=== PATIENT | male | born 1985 | race Caucasian/White ===

== ENCOUNTER → 2018-10-07 | Outpatient (CLI) | payer MEDICAID ==
[~2018-10-07] MED LIST: ALB18R INH; AMLO-113 PO; CAR6.25 PO; FURO40TA35 PO; LISI20TA29 PO; NAPR-1043 PO; PANT40TA65 PO
== END ==
LOC: US 09-27 04:50
PROVIDERS: ATTEND Physician Assistant Medical
DX: I50.9 Heart failure, unspecified (principal); I51.7 Cardiomegaly
CPT/HCPCS: 93306

== ENCOUNTER → 2018-11-20 | Outpatient (CLI) | payer MEDICAID ==
[2018-10-31 11:12] VITALS: BMI 68.6
[~2018-11-20] MED LIST changes: +ALBU2.5V36 NEB; +AZIT-18 PO; +CEF300 PO; +MODA200T6 PO; +OMEP-137 PO; +PRED20TA6 PO
== END ==
LOC: LAB 14:53
PROVIDERS: ATTEND Nurse Practitioner Family
DX: D50.9 Iron deficiency anemia, unspecified (principal); Z68.44 Body mass index [BMI] 60.0-69.9, adult; K43.9 Ventral hernia without obstruction or gangrene; D64.9 Anemia, unspecified
CPT/HCPCS: 36415; 82465; 82728; 83540; 83550; 83718; 84443; 84478

== ENCOUNTER → 2018-11-20 | Outpatient (CLI) | payer MEDICAID ==
[2018-10-31 11:12] VITALS: BMI 68.6
[2018-11-20 15:17] LABS: PLATELET COUNT, AUTOMATED 191 K/uL (150-450)
== END ==
LOC: LAB 14:50
PROVIDERS: ATTEND Internal Medicine
DX: D50.9 Iron deficiency anemia, unspecified (principal); R73.9 Hyperglycemia, unspecified
CPT/HCPCS: 82310; 82374; 82435; 82565; 82947; 84132; 84295; 84520; 85025

== ENCOUNTER → 2019-03-10 | Outpatient (CLI) | payer MEDICAID ==
[2018-10-31 11:12] VITALS: BMI 68.6
[~2019-03-10] MED LIST changes: -AMLO-113 PO; +AMLO-127 PO
--- NOTE | 2019-03-10 17:14 | RADIOLOGY IMAGING REPORT ---
FACILITY: [facility] [place] PATIENT NAME: Poncho Duran : 1985 MR: [id number] V: [id number] EXAM DATE: ORDERING PHYSICIAN: DARRYL BARRIGA TECHNOLOGIST: Location: [facility] Patient: Poncho Duran : 1985 Visit/Account:[id number] Date of Sevice: 03/10/2019 CT CHEST W/O CONTRAST History: Follow-up for pneumonia in October TECHNIQUE: Contiguous axial images were performed through the chest to the level of the adrenal gla nds. No IV contrast was administered. Coronal and sagittal reformatting was also performed.Dose Lower ing Technique One of the following dose optimization techniques was utilized in the performance of this exam: Autom ated exposure control; adjustment of the mA and/or kV according to the patient's size; or use of an i terative reconstruction technique. Specific details can be referenced in the facility's radiology C T exam operational policy. COMPARISON STUDIES: October 30, 2018. April 22 2014 Lungs / Pleura: There is a 6 mm noncalcified nodule posterior aspect the right upper lobe best seen on image 72 of series 4. This appears unchanged when compared to the most recent chest CT October 30, 2018 although is increased in size from 3 mm on the prior chest CT from April 22, 2014. There is a 3 mm noncalcified pulmonary nodule posterior aspect of the right upper lobe best seen on i mage 121 that is unchanged when compared to the 2013 study. There is a 3 mm noncalcified pulmonary nodule posterior lateral aspect the right lower lobe best seen on image 216 which is obscured by the infiltrates on the most recent CT is not identified on the [address] There is a 3 mm subpleural nodule posterior aspect of the left lower lobe best seen on image 244 unch anged when compared to 2013 There is a 7 mm subpleural nodule lateral aspect of the lingula best appreciated on image 168 which i s slightly increased in size when compared to 2013 although appears unchanged when compared to the mo recent CT There is a small amount of atelectasis in the left lower lobe. The previously noted multifocal infiltrates have resolved in the interim. There are patchy areas of mild groundglass attenuation seen throughout the lungs. No evidence of pleural effusions Mediastinum/nodes: There is been partial improvement of the mediastinal adenopathy. The largest of pretracheal lymph node now measures 2.2 x 1.9 cm. The largest right hilar node measures 2.2 x 1.7 cm . The largest left hilar lymph node measures 2.1 x 1.6 cm Heart and vessels: Mild cardiomegaly again noted. Musculoskeletal / Body wall: Spondylotic changes of the thoracic spine Upper abdomen: The spleen is incompletely imaged although appears to be enlarged IMPRESSION: The multifocal infiltrate seen on the prior CT from October 30, 2018 have resolved. There are patch y areas of groundglass attenuation throughout the lungs may represent mild residual inflammatory proc ess There are multiple bilateral pulmonary nodules. Many of these appear unchanged when compared to prio r chest CT from April 22, 2014. These are of doubtful significance. Partial improvement of the mediastinal adenopathy Spleen is incompletely imaged although appears to be enlarged Report Dictated By: Annia Angelo MD at 03/10/2019 4:52 PM Report E-Signed By: Annia Angelo MD at 03/10/2019 5:10 PM WSN:[id number]
== END ==
LOC: CT 01:18
PROVIDERS: ATTEND Nurse Practitioner Family
DX: R91.8 Other nonspecific abnormal finding of lung field (principal); R59.0 Localized enlarged lymph nodes
CPT/HCPCS: 71250

== ENCOUNTER → 2019-05-05 | Outpatient (CLI) | payer MEDICAID ==
[2018-10-31 11:12] VITALS: BMI 68.6
[2019-05-05 16:20] LABS: PLATELET COUNT, AUTOMATED 199 K/uL (150-450)
== END ==
LOC: LAB 15:57
PROVIDERS: ATTEND Nurse Practitioner Family
DX: Z01.89 Encounter for other specified special examinations (principal); D50.9 Iron deficiency anemia, unspecified; I10 Essential (primary) hypertension
CPT/HCPCS: 36415; 82040; 82247; 82310; 82374; 82435; 82565; 82728; 82947; 83540; 83550; 84075; 84132; 84155; 84295; 84450; 84460; 84520; 85025

== ENCOUNTER 2019-05-15 17:09 | Emergency (ER) | payer MEDICAID ==
[2018-10-31 11:12] VITALS: BMI 68.6
[2019-05-15 17:19] VITALS: BP 175/97
--- NOTE | 2019-05-15 17:19 | ER Report ---
History and Physical Time Seen By MD: 17:16 HPI/ROS CHIEF COMPLAINT: Numbness in the right leg HISTORY OF PRESENT ILLNESS: This is a 33-year-old male presents to the emergency department for numbness on the right leg. Patient states that he fell sleep at his computer couple days ago, facing forward, then yesterday he noticed a little bit of back discomfort and numbness down the right buttocks, today that pain does not seem to be worse however the numbness is extending down to the right lateral thigh nearing the knee. Patient denies fevers or chills. No saddle anesthesias. No chest pain or shortness of breath it's unusual for the patient. No other complaints. REVIEW OF SYSTEMS: Constitutional: No fever, no chills. Eyes: No discharge. ENT: No sore throat. Cardiovascular: No chest pain, no palpitations. Respiratory: No cough, no shortness of breath. Gastrointestinal: No abdominal pain, no vomiting. Genitourinary: No hematuria. Musculoskeletal: As above. Skin: No rashes. Neurological: As above. Allergies: Coded Allergies: No Known Drug Allergies (Unverified , 05/15/19) Home Meds Active Scripts Prednisone (PREDNISONE) 20 Mg Tablet, 20 MG PO BID, #10 TAB Prov:DELISA RICARDO [facility]- 05/15/19 Prednisone (PREDNISONE) 20 Mg Tablet, 10-20 MG PO QDAY, #5 Take 1 pill a day for 3 days, then 0.5 pill a day for 3 days Prov:ALLEN VALLE MD 11/03/18 Azithromycin 250 Mg Tab (AZITHROMYCIN 250 MG TAB) 250 Mg Tablet, 250 MG PO QDAY@1800, #1 Prov:ALLEN VALLE MD 11/03/18 Cefdinir 300 Mg Cap (OMNICEF 300 MG CAP (OR EQUIV)) 300 Mg Cap, 300 MG PO BID@0600,1800, #12 CAP Prov:ALLEN VALLE MD 11/03/18 Albuterol Sulfate 0.083% (ALBUTEROL SULFATE 0.083%) 2.5 Mg/3 Ml Vial.neb, 2.5 MG NEB Q2HR PRN for DYSPNEA, #10 Prov:ALLEN VALLE MD 11/03/18 Reported Medications Modafinil (MODAFINIL) 200 Mg Tablet, 200 MG PO DAILY PRN for as needed 10/30/18 Omeprazole (OMEPRAZOLE) 20 Mg Tablet.dr, 20 MG PO QDAY, TAB 10/30/18 Albuterol Sulfate (VENTOLIN HFA) 18 Gm Inh, 2 PUFF INH Q4-6H PRN for SHORTNESS OF BREATH, INH 03/29/16 Carvedilol (CARVEDILOL) 6.25 Mg Tab, 6.25 MG PO BID, TAB TAKE 1 TABLET BY MOUTH TWICE A DAY 07/18/14 Furosemide (LASIX) 40 Mg Tablet, 1 TAB PO BID, TAB 07/18/14 Amlodipine Besylate (AMLODIPINE BESYLATE) 10 Mg Tablet, 10 TAB PO QAM, TAB TAKE ONE TABLET BY MOUTH EVERY DAY 07/18/14 Lisinopril (LISINOPRIL) 20 Mg Tablet, 20 MG PO QDAY 07/18/14 Past Medical/Surgical History The patient has a past medical and surgical history of Mantilla's palsy, congestive heart failure, pulmonary hypertension, hypercholesterolemia, asthma, pneumonia, ankle fracture. Reviewed Nurses Notes: Yes Hx Smoking: Yes Smoking Status: Former Smoker Exposure to Second Hand Smoke?: No Hx Substance Use Disorder: No Hx Alcohol Use: Yes Constitutional Vital Sign - Last 24 Hours 05/15/19 05/15/19 17:18 17:19 Temp 98.4 Pulse 94 Resp 16 B/P (MAP) 175/97 175/97 (123) Pulse Ox 95 O2 Delivery Nasal Cannula Physical Exam General Appearance: The patient is alert, has no immediate need for airway protection and no signs of toxicity. Eyes: Pupils equal and round no pallor or injection. ENT, Mouth: Mucous membranes are moist. Respiratory: There are no retractions, lungs are clear to auscultation. Cardiovascular: Regular rate and rhythm. No murmurs, clicks or rubs. Gastrointestinal: Abdomen is soft and non tender, no masses, bowel sounds normal. Neurological: Alert and oriented 4. Moving all extremities. Following all commands. No focal neuro deficits. Skin: Warm and dry, no rashes. Musculoskeletal: Neck is supple non tender. Mid thoracic spine discomfort with palpation, down into the lumbar region, right sided multifidus muscle pain. Equal strength in both lower extremities. Patient is morbidly obese. Extremities are nontender, nonswollen and have full range of motion. DIFFERENTIAL DIAGNOSIS: After history and physical exam differential diagnosis was considered for cauda equina syndrome, subluxation, abscess, herniated disc, sciatica. Medical Decision Making EKG/Imaging Imaging PATIENT NAME: Poncho Duran : 1985 MR: [id number] V: [id number] EXAM DATE: ORDERING PHYSICIAN: DELISA RICARDO TECHNOLOGIST: Location: [facility] Patient: Poncho Duran : 1985 Visit/Account:[id number] Date of Sevice: 05/15/2019 XR THORACIC SPINE 3 V COMPARISONS: 2 view chest dated November 02, 2018 ADDITIONAL PERTINENT HISTORY: Pain and numbness FINDINGS: Vertebral body heights and alignment: Stable mild loss of height at multiple levels in the lower thoracic spine. Vertebral bodies: Anteriorly directed osteophytes at multiple levels. Disc spaces: Mild disc space narrowing involving the lower thoracic spine. Cervicothoracic junction: Negative. Surrounding soft tissues: Negative. IMPRESSION: 1. Stable mild compression deformities involving the lower thoracic spine. 2. Continued mild spondylitic change involving the lower lumbar spine. 3. No acute appearing bony abnormalities. Report Dictated By: Deonte Thibodeaux MD at 05/15/2019 7:23 PM Report E-Signed By: Deonte Thibodeaux MD at 05/15/2019 7:24 PM WSN:[id number] PATIENT NAME: Poncho Duran : 1985 MR: [id number] V: [id number] EXAM DATE: [id number] ORDERING PHYSICIAN: DELISA RICARDO TECHNOLOGIST: Location: [facility] Patient: Poncho Duran : 1985 Visit/Account:[id number] Date of Sevice: 05/15/2019 Procedures COMPARISONS: None. ADDITIONAL PERTINENT HISTORY: Pain and numbness down the left leg. FINDINGS: Vertebral body heights and alignments: Mild scoliotic curvature convex to the left centered at L3. Vertebral bodies: Mild anteriorly directed osteophytes at L1-L2 Disc spaces: Negative. Visualized bony pelvis: Negative. Surrounding soft tissues: Negative. IMPRESSION: 1. Mild scoliotic and spondylitic change as discussed above. 2. No acute appearing bony abnormalities. Report Dictated By: Deonte Thibodeaux MD at 05/15/2019 7:21 PM Report E-Signed By: Deonte Thibodeaux MD at 05/15/2019 7:23 PM WSN:[id number] ED Course/Re-evaluation ED Course The patient was admitted to room. A history and physical obtained. Differential tightness in considered. An x-ray of the thoracic and lumbar spine was obtained, negative for any acute osseous abnormalities, I did review the results with the patient. Patient was given 40 mg by mouth prednisone, he was also given a prescription for prednisone for the next 5 days. I did tell patient that this is likely radiculopathy, will resolve follow-up with his primary care provider next week for reevaluation if this is a recurrent problem he may need to seek specialized treatment, I did recommend following up with Dr. Carranza of [facility] for reevaluation. Patient expresses understanding and was discharged home. Decision to Disposition Date: May 15, 2019 Decision to Disposition Time: 19:56 Depart Departure Latest Vital Signs Vital Signs Date Time Temp Pulse Resp B/P (MAP) Pulse Ox O2 Delivery O2 Flow Rate FiO2 05/15/19 17:19 175/97 (123) 05/15/19 17:18 98.4 94 16 95 Nasal Cannula Core Temperature (Celsius): 37.1 Impression: Primary Impression: Lumbar radiculopathy Condition: Improved Disposition: HOME OR SELF-CARE New Scripts Prednisone (PREDNISONE) 20 Mg Tablet 20 MG PO BID, #10 TAB Prov: DELISA RICARDO [employer] 05/15/19 Patient Instructions: Lumbar Radiculopathy (ED) Additional Instructions: There were no concerning findings on your Xray. Please follow up with your PCP within the next 5 days for reevaluation. Take the prednisone as prescribed. If this becomes a persistent problem, you may need to follow up with Dr. Carranza, at [facility]. Drink plenty of fluids. Get plenty of rest. Return to the ED for any other concerns or worsening symptoms. DELISA RICARDO [employer] INSPECT[employer]-BC May 15, 2019 17:19
--- NOTE | 2019-05-15 19:29 | RADIOLOGY IMAGING REPORT ---
FACILITY: [facility] [place] PATIENT NAME: Poncho Duran : 1985 MR: [id number] V: [id number] EXAM DATE: ORDERING PHYSICIAN: DELISA RICARDO TECHNOLOGIST: Location: [facility] [place] Patient: Poncho Duran : 1985 Visit/Account:[id number] Date of Sevice: 05/15/2019 Procedures COMPARISONS: None. ADDITIONAL PERTINENT HISTORY: Pain and numbness down the left leg. FINDINGS: Vertebral body heights and alignments: Mild scoliotic curvature convex to the left centered at L3. Vertebral bodies: Mild anteriorly directed osteophytes at L1-L2 Disc spaces: Negative. Visualized bony pelvis: Negative. Surrounding soft tissues: Negative. IMPRESSION: 1. Mild scoliotic and spondylitic change as discussed above. 2. No acute appearing bony abnormalities. Report Dictated By: Deonte Thibodeaux MD at 05/15/2019 7:21 PM Report E-Signed By: Deonte Thibodeaux MD at 05/15/2019 7:23 PM WSN:[id number]
--- NOTE | 2019-05-15 19:31 | RADIOLOGY IMAGING REPORT ---
FACILITY: [facility] - [place], [place] PATIENT NAME: Poncho Duran : 1985 MR: [id number] V: [id number] EXAM DATE: ORDERING PHYSICIAN: DELISA RICARDO TECHNOLOGIST: Location: [facility] [place] Patient: Poncho Duran : 1985 Visit/Account:[id number] Date of Sevice: 05/15/2019 XR THORACIC SPINE 3 V COMPARISONS: 2 view chest dated November 02, 2018 ADDITIONAL PERTINENT HISTORY: Pain and numbness FINDINGS: Vertebral body heights and alignment: Stable mild loss of height at multiple levels in the lower thor acic spine. Vertebral bodies: Anteriorly directed osteophytes at multiple levels. Disc spaces: Mild disc space narrowing involving the lower thoracic spine. Cervicothoracic junction: Negative. Surrounding soft tissues: Negative. IMPRESSION: 1. Stable mild compression deformities involving the lower thoracic spine. 2. Continued mild spondylitic change involving the lower lumbar spine. 3. No acute appearing bony abnormalities. Report Dictated By: Deonte Thibodeaux MD at 05/15/2019 7:23 PM Report E-Signed By: Deonte Thibodeaux MD at 05/15/2019 7:24 PM WSN:[id number]
[2019-05-15] MEDS ORDERED: predniSONE 20 MG TAB PO ONE (20:00)
[2019-05-15] MEDS ORDERED: PRED20TA6 PO (20:01)
== END 2019-05-15 20:19 | disposition home or self-care (01) ==
LOC: ER 17:38
DX: M54.16 Radiculopathy, lumbar region (principal)
CPT/HCPCS: 72072; 72100; 99284; J7512

== ENCOUNTER → 2019-05-19 | Outpatient (CLI) | payer MEDICAID ==
[2018-10-31 11:12] VITALS: BMI 68.6
== END ==
LOC: LAB 15:44
PROVIDERS: ATTEND Nurse Practitioner Family
DX: R19.7 Diarrhea, unspecified (principal); R19.5 Other fecal abnormalities

== ENCOUNTER → 2019-06-13 | Outpatient (CLI) | payer MEDICAID ==
[2018-10-31 11:12] VITALS: BMI 68.6
== END ==
LOC: ZZSENDIN 08:51
PROVIDERS: ATTEND Nurse Practitioner Family
DX: R19.7 Diarrhea, unspecified (principal); R19.5 Other fecal abnormalities
CPT/HCPCS: 82274; 87045; 87177; 87324; 87449